=== PATIENT | male | born 1995 | race Caucasian/White ===

== ENCOUNTER 2022-08-28 22:01 | Emergency (ER) | payer SELFPAY ==
[~2022-08-28] VITALS: Ht 167.6 cm; Wt 81.6 kg
[2022-08-28 22:20] VITALS: BP 119/78
--- NOTE | 2022-08-28 22:23 | NUR ---
TO [facility]
--- NOTE | 2022-08-29 | NUR ---
PT TO [facility]
--- NOTE | 2022-08-29 00:16 | NUR ---
Dr. Espino examining patient.
--- NOTE | 2022-08-29 00:46 | NUR ---
PT RETURN FROM XRAY
[2022-08-29] MEDS ORDERED: ACET-10509 PO (00:56)
[2022-08-29] MEDS ORDERED: FLONAS NS (00:56)
--- NOTE | 2022-08-29 01:07 | NUR ---
Patient discharged with v/s stable. Written and verbal after care instructions given and explained. Patient alert, oriented and verbalized understanding of instructions. Ambulatory with steady gait. All questions addressed prior to discharge. ID band removed. Patient advised to follow up with PMD. Rx of TYLENOL EXTRA STRENGHTH FLONASE NASAL given.
== END 2022-08-29 01:07 | disposition home or self-care (01) ==
LOC: MED 22:01
DX: R04.0 Epistaxis (principal); R07.89 Other chest pain; J31.0 Chronic rhinitis; Z79.899 Other long term (current) drug therapy
CPT/HCPCS: 71045; 99283